=== PATIENT | male | born 1990 | race Caucasian/White ===

== ENCOUNTER 2019-11-17 16:30 | Emergency (ER) | payer MEDICAID, SELFPAY ==
--- NOTE | ~2019-11-17 | XR_ITS ---
EXAMINATION: XR chest 2V DATE: 11/17/2019 18:00 INDICATION: Midsternal chest pain. TECHNIQUE: Frontal and lateral views of the chest were obtained. COMPARISON: Chest 2 views 10/11/2006 FINDINGS: The chest demonstrates clear lungs without pneumonia, pleural effusion, or pneumothorax. Th e heart size is normal. IMPRESSION: 1. No acute cardiopulmonary disease. Reviewed, dictated and finalized at location A.
[2019-11-17 16:46] VITALS: BP 135/87; PULSE 71; RESP 21; TEMP 36.9; O2SAT 99
--- NOTE | 2019-11-17 16:46 | ECG_ITS ---
Measurements Intervals [place] Rate: 73 P: 63 ID: [id number] QRS: -15 QRSD: 102 T: 59 QT: 358 QTc: 395 Interpretive Statements SINUS RHYTHM WITH MARKED SINUS ARRHYTHMIA DELAYED PRECORDIAL R/S TRANSITION VOLTAGE CRITERIA FOR LVH MINIMAL Q WAVES- HIGH LATERAL LEADS BORDERLINE ECG Electronically Signed On 11-17-2019 16:56:51 CDT by Jacky Beard D.O.
[2019-11-17 17:17] LABS: Basophils Absolute Auto 0.1 K/mm3 (0.0-0.1); Basophils Percent Auto 1.1 % (0.2-1.2); Eosinophils Absolute Auto 0.3 K/mm3 (0-0.3); Eosinophils Percent Auto 3.2 % (0-4.4); Hematocrit 47.3 % (42.0-52.0); Hemoglobin 16.2 g/dL (14.0-18.0); INR 1.1; Immature Granulocyte Absolute 0.02 K/mm3 (0.00-0.031); Immature Granulocyte Percent A 0.2 % (0-0.5); Lymphocytes Absolute Auto 1.77 K/mm3 (0.9-3.2); Lymphocytes Percent Auto 20.8 % (18.3-44.2); Mean Corpuscular HGB Conc 34.2 g/dl (32-36); Mean Corpuscular Hemoglobin 30.2 pg (26-34); Mean Corpuscular Volume 88.1 fl (80-100); Mean Platelet Volume 9.8 fl (7.4-10.4); Monocytes Absolute Auto 0.7 K/mm3 (0.1-0.6); Monocytes Percent Auto 8.6 % (2.6-8.5); Neutrophils Absolute Auto 5.6 K/mm3 (1.3-6.7); Neutrophils Percent Auto 66.1 % (45.5-73.1); Partial Thromboplastin Time 26.5 SECONDS (22.3-36.8); Platelet Count Result 447 k/mm3 (150-375); Prothrombin Time 13.5 Seconds (11.1-14.7); Red Blood Count 5.37 M/mm3 (4.6-6.20); Red Cell Distribution Width 12.7 % (11.5-14.5); White Blood Count 8.5 K/mm3 (4.5-10.0)
[2019-11-17 17:28] LABS: Blood Urea Nitrogen 14 mg/dL (9-20); Calcium 9.7 mg/dL (8.4-10.2); Carbon Dioxide 33 mmol/L (22-30); Chloride 94 mmol/L (98-107); Estimated CRCL calculation 101 ml/min; Estimated Glomerular Filt Rate > 60; Glucose 115 mg/dL (75-110); Potassium 3.3 mmol/L (3.4-5.0); Sodium 139 mmol/L (137-145)
[2019-11-17 17:39] LABS: Troponin I < 0.012 ng/mL (0.000-0.034)
--- NOTE | 2019-11-17 18:44 | ED.CHESTPAIN ---
HPI - Chest Pain General Chief Complaint: Chest Pain Stated Complaint: MIDSTERNAL CP FROM EMS Time Seen by Provider: 11/17/19 18:38 Source: patient History of Present Illness HPI narrative: 29 years old white male, homeless brought to the emergency room by ambulance complaining of retrosternal heartburn for the last 5 days, constant, worse with eating or drinking, better with certain position. Patient reports last meal was 5 days ago. Patient denies any fever, chills, nausea, vomiting, shortness of breath, exposure to anybody with known COVID-19. Patient reports using a lot of substance including cocaine, marijuana, heroin. Patient also smokes, denies any drinking Related Data Home Medications Medication Instructions Recorded Confirmed No Home Medications 11/17/19 11/17/19 Allergies Allergy/AdvReac Type Severity Reaction Status Date / Time No Known Allergies Allergy Mild Verified 01/30/08 20:10 Review of Systems Review of Systems: Narrative: CONSTITUTIONAL: Denies fever, chills, or sweats. EYES: Denies visual changes, redness, or discharge. ENT: Denies rhinorrhea, congestion, sore throat, or otalgia. CARDIOVASCULAR: Denies chest pain, palpitations, or edema. RESPIRATORY: Denies cough or dyspnea. GASTROINTESTINAL: Denies abdominal pain, nausea, vomiting, or diarrhea. GENITOURINARY: Denies dysuria or hematuria. SKIN: Denies rash or itching. MUSCULOSKELETAL: Denies back pain, joint pain, or myalgia. NEUROLOGIC: Denies headache, numbness, or weakness. PSYCHIATRIC: Denies anxiety or depression. PMFSH Social History Social History Gender identity (if verbalized by the patient): Male Exam Narrative: Exam Narrative: General appearance: Well-developed, well-nourished Skin: Normal color Head: Normocephalic, nontraumatic Eyes: Clear conjunctiva ENT: Oropharynx normal, ears normal, nose normal Neck: Supple, nontender Chest and respiratory: Airway patent, no respiratory distress, no accessory muscle use Heart: Regular rate/rhythm Abdomen: Soft, nontender, no organomegaly, quiet bowel sounds Vascular: Normal peripheral pulses, normal capillary refill. Musculoskeletal: Normal range of motion, nontender back Neurologic: Alert and oriented ?3, PSYCHIATRIC SPECIALIST is normal as tested, no gross motor deficit Course Course Emergency Course: Stable Vital Signs Vital signs: Vital Signs Temperature 36.9 C 11/17/19 16:46 Pulse Rate 71 11/17/19 16:46 Respiratory Rate 21 H 11/17/19 16:46 Blood Pressure 135/87 11/17/19 16:46 Pulse Oximetry 99 11/17/19 16:46 Temperature 36.9 C 11/17/19 16:46 Pulse Rate 71 11/17/19 16:46 Respiratory Rate 21 H 11/17/19 16:46 Blood Pressure 135/87 11/17/19 16:46 Pulse Oximetry 99 11/17/19 16:46 MDM - Chest Pain MDM Narrative Medical decision making narrative: Musculoskeletal pain, hunger pain, drug abuse related symptoms and anxiety/stress are my concern. Labs, chest x-ray, EKG ordered. Further plan to follow Differential Diagnosis Differential diagnosis: Likely atypical chest pain, costochondritis and chest pain Lab Data Result diagrams: 11/17/19 16:59 11/17/19 16:59 Labs: Lab Results 11/17/19 11/17/19 11/17/19 Range/Units 16:59 16:59 16:59 WBC 8.5 (4.5-10.0) K/mm3 RBC 5.37 (4.6-6.20) M/mm3 Hgb 16.2 (14.0-18.0) g/dL Hct 47.3 (42.0-52.0) % MCV 88.1 (80-100) fl MCH 30.2 (26-34) pg MCHC 34.2 (32-36) g/dl RDW 12.7 (11.5-14.5) % Plt Count 447 H (150-375) k/mm3 MPV 9.8 (7.4-10.4) fl Immature Gran % (Auto) 0.2 (0-0.5) % Neut % (Auto) 66.1 (45.5-73.1)
[2019-11-17 18:54] VITALS: BP 100/84; PULSE 56; PULSE 66; RESP 18; O2SAT 98
== END 2019-11-17 19:19 | disposition home or self-care (01) ==
PROVIDERS: Emergency Provider Emergency Medicine
DX: R07.89 Other chest pain (principal); E87.6 Hypokalemia; K29.70 Gastritis, unspecified, without bleeding; K20.9 Esophagitis, unspecified; Z59.0 Homelessness; R94.31 Abnormal electrocardiogram [ECG] [EKG]
CPT/HCPCS: 36415; 71046; 80048; 84484; 85025; 85610; 85730; 93005; 99284

== ENCOUNTER 2020-08-27 20:28 | Emergency (ER) | payer SELFPAY | END 2020-08-27 20:55 | disposition left against medical advice (07) | LOC: ANHED 20:34 | DX: Z53.21 Procedure and treatment not carried out due to patient leaving prior to being seen by health care provider (principal) | CPT/HCPCS: 99199 ==